=== PATIENT | male | born 1995 | race Caucasian/White ===

== ENCOUNTER 2021-03-14 15:59 | Emergency (ER) | payer OTHER ==
[~2021-03-14] VITALS: Ht 195.6 cm; Wt 101.6 kg
[2021-03-14 16:04] VITALS: BP 138/83
[2021-03-14] MEDS ORDERED: LIDOCAINE-MPF 1%, 5ML ONE (16:27)
[2021-03-14] MEDS ORDERED: LIDOCAINE-MPF 1%, 5ML INFIL ONE (16:30)
[2021-03-14] MEDS ORDERED: NEOSPORIN OINT. PKT 1 PACKET ONE (16:45)
--- NOTE | 2021-03-14 18:46 | NUR ---
LEADERSHIP RECRUITER APPLIED BACITRACIN AND DRESSED.
== END 2021-03-14 18:48 | disposition home or self-care (01) ==
LOC: ED 18:39
DX: S61.211A Laceration without foreign body of left index finger without damage to nail, initial encounter (principal); S61.213A Laceration without foreign body of left middle finger without damage to nail, initial encounter; S61.215A Laceration without foreign body of left ring finger without damage to nail, initial encounter; S61.217A Laceration without foreign body of left little finger without damage to nail, initial encounter; X58.XXXA Exposure to other specified factors, initial encounter; Y93.89 Activity, other specified; Y92.828 Other wilderness area as the place of occurrence of the external cause; Y99.8 Other external cause status
CPT/HCPCS: 12044; 99285